=== PATIENT | female | born 1950 | race Two or more races ===

== ENCOUNTER 2017-10-11 15:59 | Inpatient (IN) | payer MEDICARE, MEDICAID ==
[~2017-10-11] VITALS: Ht 160 cm; Wt 95.3 kg
[2017-10-11] MEDS ORDERED: DOCU-141 PO (18:21)
[2017-10-11] MEDS ORDERED: ASCO500T10 PO (18:21)
[2017-10-11] MEDS ORDERED: OXYC-128 PO (18:21)
[2017-10-11] MEDS ORDERED: SENN-167 PO (18:21)
[2017-10-11] MEDS ORDERED: LISI-603 PO (18:21)
[2017-10-11] MEDS ORDERED: ACET-73 PO (18:21)
[2017-10-11] MEDS ORDERED: BISA-79 PR (18:21)
[2017-10-11] MEDS ORDERED: SODI50SP NS (18:21)
[2017-10-11] MEDS ORDERED: CEPH-570 PO (18:21)
[2017-10-11] MEDS ORDERED: ASPI-612 PO (18:21)
[2017-10-11] MEDS ORDERED: FLUT16SP NS (18:21)
[2017-10-11] MEDS ORDERED: FERR325T28 PO (18:21)
[2017-10-11] MEDS ORDERED: OMEP20TA5 PO (18:21)
[2017-10-11] MEDS ORDERED: FLUO60SO3 TP (18:21)
[2017-10-11] MEDS ORDERED: PRAV20TA4 PO (18:21)
[2017-10-11] MEDS ORDERED: TIOT18CA3 IH (18:21)
[2017-10-11] MEDS ORDERED: OXYCODONE/APAP 5-325 MG TABLET PO PRN (19:00)
[2017-10-11] MEDS ORDERED: SENNOSIDES 1 TABLET PO PRN (19:00)
[2017-10-11] MEDS ORDERED: ACETAMINOPHEN ES 500 MG TABLET PO PRN (19:00)
[2017-10-11] MEDS ORDERED: BISACODYL 10 MG SUPP.RECT RC PRN (19:15)
[2017-10-11 20:30] VITALS: BP 118/40
[2017-10-11] MEDS: CEPHALEXIN MONOHYDRATE 500 MG CAPSULE PO SCH (21:31)
[2017-10-11] MEDS: MORPHINE SULFATE SR 15 MG TABLET.SA PO SCH (21:31)
[2017-10-12] MEDS: PANTOPRAZOLE SODIUM 40 MG TABLET.DR PO SCH (06:23)
[2017-10-12 06:37] VITALS: BP 109/44
[2017-10-12 07:07] LABS: BASOPHILS # (AUTO) 0.1 K/uL (0.0-8.0); BASOPHILS % (AUTO) 1.4 % (0.0-2.0); EOSINOPHILS # (AUTO) 0.8 K/uL (0.0-0.7); EOSINOPHILS % (AUTO) 10.7 % (0.0-7.0); HEMATOCRIT 25.7 % (31.2-41.9); HEMOGLOBIN 8.8 g/dL (10.9-14.3); LYMPHOCYTES # (AUTO) 1.7 K/uL (20.0-40.0); MEAN CORPUSCULAR HEMOGLOBIN 33.5 uug (24.7-32.8); MEAN CORPUSCULAR HGB CONC 34 g/dL (32.3-35.6); MEAN CORPUSCULAR VOLUME 98.2 fL (75.5-95.3); MONOCYTES # (AUTO) 0.7 K/uL (2.0-10.0); MONOCYTES % (AUTO) 8.8 % (0.0-11.0); NEUTROPHILS # (AUTO) 4.5 K/uL (1.8-8.9); NEUTROPHILS % (AUTO) 57.1 % (38.5-71.5); PLATELET COUNT (AUTO) 238 K/uL (179-408); RED BLOOD CELL COUNT(AUTO) 2.62 MIL/uL (3.63-4.92); WHITE BLOOD COUNT (AUTO) 7.8 K/uL (3.8-11.8)
[2017-10-12 07:17] LABS: THYROID STIMULATING HORMONE 3.35 mIU/mL (0.358-3.740)
[2017-10-12 07:43] LABS: BILIRUBIN,TOTAL 0.2 mg/dL (0.2-1.0); CREATININE 0.9 mg/dL (0.6-1.3); MAGNESIUM 1.9 mg/dL (1.8-2.4); PHOSPHOROUS 4.8 mg/dL (2.5-4.9); POTASSIUM 4.6 mmol/L (3.5-5.1); TOTAL PROTEIN, SERUM 6.1 g/dL (6.4-8.2)
[2017-10-12] MEDS: DOCUSATE SODIUM 100 MG CAPSULE PO SCH ×2 (09:07→16:44)
[2017-10-12] MEDS: FERROUS SULFATE 325 MG TABEC PO SCH (09:07)
[2017-10-12] MEDS: CEPHALEXIN MONOHYDRATE 500 MG CAPSULE PO SCH ×4 (09:07→21:07)
[2017-10-12] MEDS: MORPHINE SULFATE SR 15 MG TABLET.SA PO SCH ×2 (09:07→21:08)
[2017-10-12] MEDS: ASPIRIN 325 MG TABLET PO SCH ×2 (09:07→16:44)
[2017-10-12] MEDS: ASCORBIC ACID 500 MG TABLET PO SCH (09:08)
[2017-10-12 11:15] VITALS: BP 105/49
[2017-10-12] MEDS: OXYCODONE HCL 5 MG TABLET PO PRN ×2 (14:08→23:37)
[2017-10-12 16:03] VITALS: BP 120/48
[2017-10-12 20:20] VITALS: BP 100/44
[2017-10-13 05:00] VITALS: BP 101/41
[2017-10-13] MEDS: PANTOPRAZOLE SODIUM 40 MG TABLET.DR PO SCH (06:09)
[2017-10-13] MEDS: OXYCODONE HCL 5 MG TABLET PO PRN ×3 (06:10→21:39)
[2017-10-13 07:50] VITALS: BP 99/38
[2017-10-13] MEDS: CEPHALEXIN MONOHYDRATE 500 MG CAPSULE PO SCH ×4 (08:14→20:08)
[2017-10-13] MEDS: FERROUS SULFATE 325 MG TABEC PO SCH (08:14)
[2017-10-13] MEDS: ASCORBIC ACID 500 MG TABLET PO SCH (08:15)
[2017-10-13] MEDS: MORPHINE SULFATE SR 15 MG TABLET.SA PO SCH ×2 (08:15→20:08)
[2017-10-13] MEDS: ASPIRIN 325 MG TABLET PO SCH ×2 (08:15→16:14)
[2017-10-13] MEDS: DOCUSATE SODIUM 100 MG CAPSULE PO SCH ×2 (08:15→16:13)
[2017-10-13] MEDS: CYANOCOBALAMIN 1000 MCG/ML VIAL IM SCH (08:15)
[2017-10-13] MEDS: BISACODYL 5 MG TABLET.DR PO PRN ×2 (12:35→16:14)
[2017-10-13 15:49] VITALS: BP 108/38
[2017-10-13 20:48] VITALS: BP 125/47
[2017-10-14 05:53] VITALS: BP 105/48
[2017-10-14] MEDS: OXYCODONE HCL 5 MG TABLET PO PRN ×4 (06:05→23:58)
[2017-10-14] MEDS: PANTOPRAZOLE SODIUM 40 MG TABLET.DR PO SCH (06:05)
[2017-10-14 08:00] VITALS: BP 117/43
[2017-10-14] MEDS: CEPHALEXIN MONOHYDRATE 500 MG CAPSULE PO SCH ×4 (09:11→20:17)
[2017-10-14] MEDS: ASPIRIN 325 MG TABLET PO SCH ×2 (09:11→17:40)
[2017-10-14] MEDS: ASCORBIC ACID 500 MG TABLET PO SCH (09:12)
[2017-10-14] MEDS: DOCUSATE SODIUM 100 MG CAPSULE PO SCH ×2 (09:12→17:39)
[2017-10-14] MEDS: MORPHINE SULFATE SR 15 MG TABLET.SA PO SCH ×2 (09:12→20:17)
[2017-10-14] MEDS: FERROUS SULFATE 325 MG TABEC PO SCH (09:12)
[2017-10-14] MEDS: CYANOCOBALAMIN 1000 MCG/ML VIAL IM SCH (09:12)
[2017-10-14] MEDS: BISACODYL 5 MG TABLET.DR PO SCH (17:40)
[2017-10-14 19:30] VITALS: BP 128/50
[2017-10-15] MEDS: PANTOPRAZOLE SODIUM 40 MG TABLET.DR PO SCH (06:36)
[2017-10-15] MEDS: OXYCODONE HCL 5 MG TABLET PO PRN (06:38)
[2017-10-15] MEDS: CEPHALEXIN MONOHYDRATE 500 MG CAPSULE PO SCH ×4 (08:52→20:11)
[2017-10-15] MEDS: CHOLECALCIFEROL 1,000 UNIT TABLET PO SCH (08:52)
[2017-10-15] MEDS: ASPIRIN 325 MG TABLET PO SCH ×2 (08:52→17:40)
[2017-10-15] MEDS: ASCORBIC ACID 500 MG TABLET PO SCH (08:52)
[2017-10-15] MEDS: MORPHINE SULFATE SR 15 MG TABLET.SA PO SCH ×2 (08:53→20:11)
[2017-10-15] MEDS: FERROUS SULFATE 325 MG TABEC PO SCH (08:53)
[2017-10-15] MEDS: BISACODYL 5 MG TABLET.DR PO SCH ×2 (08:53→17:40)
[2017-10-15] MEDS: DOCUSATE SODIUM 100 MG CAPSULE PO SCH ×2 (08:53→17:40)
[2017-10-15 08:54] VITALS: BP 119/44
[2017-10-15] MEDS: CYANOCOBALAMIN 1000 MCG/ML VIAL IM SCH (08:54)
[2017-10-15 16:31] VITALS: BP 107/54
[2017-10-15 20:36] VITALS: BP 110/56
[2017-10-16] MEDS: PANTOPRAZOLE SODIUM 40 MG TABLET.DR PO SCH (06:04)
[2017-10-16] MEDS: OXYCODONE HCL 5 MG TABLET PO PRN ×2 (06:07→16:42)
[2017-10-16 06:40] VITALS: BP 109/53
[2017-10-16] MEDS: FERROUS SULFATE 325 MG TABEC PO SCH (08:30)
[2017-10-16] MEDS: BISACODYL 5 MG TABLET.DR PO SCH ×2 (08:30→16:41)
[2017-10-16] MEDS: ASPIRIN 325 MG TABLET PO SCH ×2 (08:31→16:41)
[2017-10-16] MEDS: CHOLECALCIFEROL 1,000 UNIT TABLET PO SCH (08:31)
[2017-10-16] MEDS: CEPHALEXIN MONOHYDRATE 500 MG CAPSULE PO SCH ×4 (08:31→20:17)
[2017-10-16] MEDS: ASCORBIC ACID 500 MG TABLET PO SCH (08:31)
[2017-10-16] MEDS: CYANOCOBALAMIN 1000 MCG/ML VIAL IM SCH (08:32)
[2017-10-16] MEDS: DOCUSATE SODIUM 100 MG CAPSULE PO SCH ×2 (08:32→16:41)
[2017-10-16] MEDS: MORPHINE SULFATE SR 15 MG TABLET.SA PO SCH ×2 (08:32→20:18)
[2017-10-16] MEDS ORDERED: FUROSEMIDE 20 MG TABLET PO ONE (12:30)
[2017-10-16] MEDS: IPRATROPIUM BROMIDE 0.5 MG/2.5 ML NEBU NEB SCH ×2 (13:30→19:20)
[2017-10-16 17:32] VITALS: BP 127/50
[2017-10-16 20:00] VITALS: BP 111/46
[2017-10-17] MEDS: IPRATROPIUM BROMIDE 0.5 MG/2.5 ML NEBU NEB SCH ×4 (02:02→19:07)
[2017-10-17 04:00] VITALS: BP 121/52
[2017-10-17 04:07] VITALS: BP 110/47
[2017-10-17] MEDS: MORPHINE SULFATE SR 15 MG TABLET.SA PO SCH ×2 (05:39→20:26)
[2017-10-17] MEDS: PANTOPRAZOLE SODIUM 40 MG TABLET.DR PO SCH (05:40)
[2017-10-17] MEDS ORDERED: MISCELLANEOUS MED INH SCH (09:00)
[2017-10-17] MEDS: ASPIRIN 325 MG TABLET PO SCH ×2 (09:08→17:01)
[2017-10-17] MEDS: OXYCODONE HCL 5 MG TABLET PO PRN ×2 (09:08→13:37)
[2017-10-17] MEDS: BISACODYL 5 MG TABLET.DR PO SCH ×2 (09:08→17:01)
[2017-10-17] MEDS: FLUTICASONE PROP NASAL SPRAY 16 GM BOTTLE NS SCH (09:08)
[2017-10-17] MEDS: CEPHALEXIN MONOHYDRATE 500 MG CAPSULE PO SCH ×4 (09:09→20:26)
[2017-10-17] MEDS: FUROSEMIDE 20 MG TABLET PO SCH (09:09)
[2017-10-17] MEDS: ASCORBIC ACID 500 MG TABLET PO SCH (09:09)
[2017-10-17] MEDS: DOCUSATE SODIUM 100 MG CAPSULE PO SCH ×2 (09:09→17:01)
[2017-10-17] MEDS: FERROUS SULFATE 325 MG TABEC PO SCH (09:09)
[2017-10-17] MEDS: CYANOCOBALAMIN 1000 MCG/ML VIAL IM SCH (09:09)
[2017-10-17] MEDS: CHOLECALCIFEROL 1,000 UNIT TABLET PO SCH (09:09)
[2017-10-17 16:07] VITALS: BP 110/47
[2017-10-17 20:00] VITALS: BP 143/53
[2017-10-18] MEDS: IPRATROPIUM BROMIDE 0.5 MG/2.5 ML NEBU NEB SCH ×4 (01:27→19:00)
[2017-10-18] MEDS: OXYCODONE HCL 5 MG TABLET PO PRN ×2 (02:33→13:58)
[2017-10-18 04:00] VITALS: BP 118/46
[2017-10-18] MEDS: PANTOPRAZOLE SODIUM 40 MG TABLET.DR PO SCH (06:06)
[2017-10-18] MEDS: CYANOCOBALAMIN 1000 MCG/ML VIAL IM SCH (08:21)
[2017-10-18] MEDS: ASPIRIN 325 MG TABLET PO SCH ×2 (08:22→17:13)
[2017-10-18] MEDS: MORPHINE SULFATE SR 15 MG TABLET.SA PO SCH ×2 (08:22→20:18)
[2017-10-18] MEDS: FUROSEMIDE 20 MG TABLET PO SCH (08:22)
[2017-10-18] MEDS: DOCUSATE SODIUM 100 MG CAPSULE PO SCH ×2 (08:23→17:12)
[2017-10-18] MEDS: CHOLECALCIFEROL 1,000 UNIT TABLET PO SCH (08:23)
[2017-10-18] MEDS: CEPHALEXIN MONOHYDRATE 500 MG CAPSULE PO SCH ×4 (08:23→20:17)
[2017-10-18] MEDS: FERROUS SULFATE 325 MG TABEC PO SCH (08:23)
[2017-10-18] MEDS: BISACODYL 5 MG TABLET.DR PO SCH ×2 (08:23→17:12)
[2017-10-18] MEDS: FLUTICASONE PROP NASAL SPRAY 16 GM BOTTLE NS SCH (08:23)
[2017-10-18] MEDS: ASCORBIC ACID 500 MG TABLET PO SCH (08:23)
[2017-10-18 16:06] VITALS: BP 130/48
[2017-10-18 19:51] VITALS: BP 132/50
[2017-10-19] MEDS: IPRATROPIUM BROMIDE 0.5 MG/2.5 ML NEBU NEB SCH ×4 (00:30→21:22)
[2017-10-19 05:00] VITALS: BP 127/53
[2017-10-19] MEDS: PANTOPRAZOLE SODIUM 40 MG TABLET.DR PO SCH (06:00)
[2017-10-19] MEDS: OXYCODONE HCL 5 MG TABLET PO PRN (06:00)
[2017-10-19] MEDS: DOCUSATE SODIUM 100 MG CAPSULE PO SCH ×2 (09:08→17:42)
[2017-10-19] MEDS: FERROUS SULFATE 325 MG TABEC PO SCH (09:08)
[2017-10-19] MEDS: CHOLECALCIFEROL 1,000 UNIT TABLET PO SCH (09:09)
[2017-10-19] MEDS: BISACODYL 5 MG TABLET.DR PO SCH ×2 (09:09→17:42)
[2017-10-19] MEDS: CEPHALEXIN MONOHYDRATE 500 MG CAPSULE PO SCH (09:09)
[2017-10-19] MEDS: FUROSEMIDE 20 MG TABLET PO SCH (09:09)
[2017-10-19] MEDS: ASPIRIN 325 MG TABLET PO SCH ×2 (09:09→17:42)
[2017-10-19] MEDS: ASCORBIC ACID 500 MG TABLET PO SCH (09:09)
[2017-10-19] MEDS: MORPHINE SULFATE SR 15 MG TABLET.SA PO SCH ×2 (09:11→20:20)
[2017-10-19] MEDS: CYANOCOBALAMIN 1000 MCG/ML VIAL IM SCH (09:11)
[2017-10-19] MEDS: FLUTICASONE PROP NASAL SPRAY 16 GM BOTTLE NS SCH (09:13)
[2017-10-19] MEDS: VANCOMYCIN IV 1,500 MG in IV DEXTROSE 5% 500 ML IV SCH (13:34)
[2017-10-19 16:08] VITALS: BP 111/45
[2017-10-19 19:30] VITALS: BP 104/44
[2017-10-20] MEDS: IPRATROPIUM BROMIDE 0.5 MG/2.5 ML NEBU NEB SCH ×4 (01:30→20:36)
[2017-10-20] MEDS: OXYCODONE HCL 5 MG TABLET PO PRN ×3 (03:21→18:46)
[2017-10-20 04:30] VITALS: BP 110/48
[2017-10-20] MEDS: VANCOMYCIN IV 1,500 MG in IV DEXTROSE 5% 500 ML IV SCH ×2 (05:44→23:42)
[2017-10-20] MEDS: PANTOPRAZOLE SODIUM 40 MG TABLET.DR PO SCH (06:06)
[2017-10-20] MEDS: ASPIRIN 325 MG TABLET PO SCH ×2 (08:29→16:22)
[2017-10-20] MEDS: CHOLECALCIFEROL 1,000 UNIT TABLET PO SCH (08:29)
[2017-10-20] MEDS: FERROUS SULFATE 325 MG TABEC PO SCH (08:29)
[2017-10-20] MEDS: DOCUSATE SODIUM 100 MG CAPSULE PO SCH ×2 (08:29→16:22)
[2017-10-20] MEDS: MORPHINE SULFATE SR 15 MG TABLET.SA PO SCH ×2 (08:30→20:08)
[2017-10-20] MEDS: FUROSEMIDE 20 MG TABLET PO SCH (08:30)
[2017-10-20] MEDS: CYANOCOBALAMIN 1000 MCG/ML VIAL IM SCH (08:30)
[2017-10-20] MEDS: ASCORBIC ACID 500 MG TABLET PO SCH (08:30)
[2017-10-20] MEDS: BISACODYL 5 MG TABLET.DR PO SCH ×2 (08:30→16:21)
[2017-10-20] MEDS: FLUTICASONE PROP NASAL SPRAY 16 GM BOTTLE NS SCH (08:32)
[2017-10-20 09:00] VITALS: BP 120/51
[2017-10-20 15:57] VITALS: BP 96/45
[2017-10-20 16:03] VITALS: BP 96/45
[2017-10-20 19:30] VITALS: BP 102/42
[2017-10-20] MEDS: NYSTATIN OINTMENT 15 GM TUBE TOP SCH (20:08)
[2017-10-21] MEDS: IPRATROPIUM BROMIDE 0.5 MG/2.5 ML NEBU NEB SCH ×4 (01:07→18:34)
[2017-10-21 04:00] VITALS: BP 130/48
[2017-10-21] MEDS: PANTOPRAZOLE SODIUM 40 MG TABLET.DR PO SCH (06:23)
[2017-10-21] MEDS: BISACODYL 5 MG TABLET.DR PO SCH ×2 (08:56→17:45)
[2017-10-21] MEDS: FERROUS SULFATE 325 MG TABEC PO SCH (08:56)
[2017-10-21] MEDS: CHOLECALCIFEROL 1,000 UNIT TABLET PO SCH (08:56)
[2017-10-21] MEDS: ASCORBIC ACID 500 MG TABLET PO SCH (08:56)
[2017-10-21] MEDS: DOCUSATE SODIUM 100 MG CAPSULE PO SCH ×2 (08:56→17:45)
[2017-10-21] MEDS: ASPIRIN 325 MG TABLET PO SCH ×2 (08:57→17:45)
[2017-10-21] MEDS: FLUTICASONE PROP NASAL SPRAY 16 GM BOTTLE NS SCH (08:57)
[2017-10-21] MEDS: FUROSEMIDE 20 MG TABLET PO SCH (08:57)
[2017-10-21] MEDS: CYANOCOBALAMIN 1000 MCG/ML VIAL IM SCH (08:57)
[2017-10-21] MEDS: MORPHINE SULFATE SR 15 MG TABLET.SA PO SCH ×2 (08:58→20:29)
[2017-10-21] MEDS: NYSTATIN OINTMENT 15 GM TUBE TOP SCH ×2 (08:59→20:28)
[2017-10-21 09:04] VITALS: BP 105/61
[2017-10-21] MEDS: OXYCODONE HCL 5 MG TABLET PO PRN (13:53)
[2017-10-21 15:40] VITALS: BP 114/52
[2017-10-21] MEDS: VANCOMYCIN IV 1,500 MG in IV DEXTROSE 5% 500 ML IV SCH (19:44)
[2017-10-21 20:00] VITALS: BP 89/45
[2017-10-22] MEDS: IPRATROPIUM BROMIDE 0.5 MG/2.5 ML NEBU NEB SCH ×3 (00:33→13:30)
[2017-10-22] MEDS: OXYCODONE HCL 5 MG TABLET PO PRN ×2 (01:39→06:42)
[2017-10-22 04:30] VITALS: BP 111/46
[2017-10-22] MEDS: PANTOPRAZOLE SODIUM 40 MG TABLET.DR PO SCH (06:18)
[2017-10-22] MEDS: DOCUSATE SODIUM 100 MG CAPSULE PO SCH (08:34)
[2017-10-22] MEDS: CHOLECALCIFEROL 1,000 UNIT TABLET PO SCH (08:34)
[2017-10-22] MEDS: FERROUS SULFATE 325 MG TABEC PO SCH (08:34)
[2017-10-22] MEDS: BISACODYL 5 MG TABLET.DR PO SCH (08:34)
[2017-10-22] MEDS: ASCORBIC ACID 500 MG TABLET PO SCH (08:34)
[2017-10-22] MEDS: FUROSEMIDE 20 MG TABLET PO SCH (08:34)
[2017-10-22] MEDS: ASPIRIN 325 MG TABLET PO SCH (08:34)
[2017-10-22] MEDS: MORPHINE SULFATE SR 15 MG TABLET.SA PO SCH (08:35)
[2017-10-22] MEDS: FLUTICASONE PROP NASAL SPRAY 16 GM BOTTLE NS SCH (08:36)
[2017-10-22] MEDS: CYANOCOBALAMIN 1000 MCG/ML VIAL IM SCH (08:36)
[2017-10-22] MEDS: NYSTATIN OINTMENT 15 GM TUBE TOP SCH (08:36)
[2017-10-22 08:42] VITALS: BP 113/65
[2017-10-22] MEDS: VANCOMYCIN IV 1,500 MG in IV DEXTROSE 5% 500 ML IV SCH (11:35)
== END 2017-10-22 14:10 | DRG 560 ==
PROVIDERS: ADMIT Physical Medicine & Rehabilitation Pain Medicine; ATTEND Physical Medicine & Rehabilitation Pain Medicine
DX: Z47.1 Aftercare following joint replacement surgery (principal); L03.116 Cellulitis of left lower limb; T81.4XXD Infection following a procedure, subsequent encounter; J44.9 Chronic obstructive pulmonary disease, unspecified; Z96.642 Presence of left artificial hip joint; E66.01 Morbid (severe) obesity due to excess calories; Z68.37 Body mass index [BMI] 37.0-37.9, adult; G89.29 Other chronic pain; M54.5 Low back pain; R53.1 Weakness; I10 Essential (primary) hypertension; R26.89 Other abnormalities of gait and mobility; L29.9 Pruritus, unspecified; M17.10 Unilateral primary osteoarthritis, unspecified knee; N76.0 Acute vaginitis; T40.605A Adverse effect of unspecified narcotics, initial encounter; K59.03 Drug induced constipation; Z88.5 Allergy status to narcotic agent; R60.0 Localized edema; Y92.230 Patient room in hospital as the place of occurrence of the external cause
CPT/HCPCS: 36415; 82306; 83735; 84100; 84443; 85025; 92526; 92610; 97110; 97116; 97530; 97535; A4663; J3370; J3420; J3535; J3590; J7060

== ENCOUNTER 2020-01-01 18:43 | Inpatient (IN) | payer MEDICARE, OTHER ==
[~2020-01-01] VITALS: Ht 157.5 cm; Wt 100.4 kg
[~2020-01-01 18:43] MED LIST: ACET-73 PO; ASCO500T10 PO; ASPI-612 PO; CEPH-570 PO; DOCU-141 PO; FERR325T28 PO; FLUO60SO3 TP; FLUT16SP NS; LISI-603 PO; OMEP20TA5 PO; OXYC-128 PO; PRAV20TA4 PO; SENN-261 PO; SODI50SP NS; TIOT18CA3 IH
[2020-01-01] MEDS ORDERED: OXYCODONE/APAP 5-325 MG TABLET PO PRN (19:00)
[2020-01-01] MEDS ORDERED: NORMAL SALINE NASAL 45 ML BOTTLE NS PRN (19:00)
[2020-01-01 19:10] VITALS: BP 150/78
[2020-01-01] MEDS ORDERED: Z GUARD REMEDY PASTE 57 GM TUBE TOP PRN (20:00)
--- NOTE | 2020-01-01 20:00 | NUR ---
pt arrived on the floor at 1900. Received report from day shift nurse. Patient admitted to ARU s/p Left TKR done on 12/28/19 by Ion De La Cruz. ID band in place, allergies documented. made aware. Admitting orders complete and admitting Dr. Marley aware of new admission, med recon completed. Dr. Guan aware of admission and admitting orders completed. Pt Axox4. Patient is in no acute distress, no s/s SOB noted. Complains of 9/10 pain in left knee. Dsg left knee wound vacc, Prevena Plus suction on left knee at 125mmhg. Pt ambulates with walker, standby assist. Belongings list signed and placed in charge. Safety precautions in place with call light and belongings within reach. Will endorse to the oncoming nurse.
[2020-01-01 20:22] VITALS: BP 150/78
[2020-01-01] MEDS ORDERED: FLUOCINONIDE 0.05% SOLU 60 ML BOTTLE TP PRN (21:00)
--- NOTE | 2020-01-01 21:30 | NUR ---
Administered Oxycodone PRN pt complained of 9/10 pain. Pt has generalized itching/rash on sacrum, hips, peritoneal area, lower abdomen and under breasts. Picture taken and placed in chart. all needs attended to, assisted to the bathroom, kept comfortable, and repositioned. Safety measure in place. All personal items and call light within pt reach. will continue to monitor.
[2020-01-02] MEDS ORDERED: CEphaleXIN 500 MG CAPSULE PO SCH
[2020-01-02] MEDS: OXYCODONE HCL 5 MG TABLET PO PRN ×4 (02:52→22:39)
[2020-01-02] MEDS: diphenhydrAMINE 25 MG CAP PO PRN (03:04)
--- NOTE | 2020-01-02 03:15 | NUR ---
Patient complained of pain 8/10 administered Oxy 10mg PRN. Pt is itching and very uncomfortable, doctor electronics computer mechanic made aware, new order for Benadryl PRN for itching ordered and administered.
[2020-01-02 04:10] VITALS: BP 127/75
[2020-01-02] MEDS: PANTOPRAZOLE SODIUM 40 MG TABLET.DR PO SCH (06:35)
--- NOTE | 2020-01-02 06:37 | NUR ---
Patient slept well through the night. No new changes. Pain is tolerable. Itching subsided. Vitals WNL. Will endorse report to next shift accordingly.
[2020-01-02] MEDS: LISINOPRIL 20 MG TABLET PO SCH (08:36)
[2020-01-02] MEDS: DOCUSATE SODIUM 100 MG CAPSULE PO SCH ×2 (08:36→17:08)
[2020-01-02] MEDS: FERROUS SULFATE 325 MG TABEC PO SCH (08:36)
[2020-01-02] MEDS: ASCORBIC ACID 500 MG TABLET PO SCH (08:36)
[2020-01-02] MEDS ORDERED: ASPIRIN 325 MG TABLET PO SCH (09:00)
[2020-01-02] MEDS ORDERED: FLUTICASONE PROP NASAL SPRAY 16 GM BOTTLE NS PRN (09:00)
[2020-01-02] MEDS ORDERED: ATORVASTATIN 10 MG TABLET PO SCH (09:00)
[2020-01-02 12:05] VITALS: BP 130/63
[2020-01-02] MEDS: IPRATROPIUM BROMIDE 0.5 MG/2.5 ML NEBU NEB SCH ×2 (13:30→19:30)
[2020-01-02] MEDS ORDERED: NALOXONE HCL 0.4 MG/ML AMPUL IV PRN (14:15)
[2020-01-02] MEDS: OXYCODONE HCL 10 MG TAB.SR.12H PO SCH ×2 (14:49→21:08)
--- NOTE | 2020-01-02 17:58 | NUR ---
Q6 atrovent first dose not given at 1330, unaware of order, not notified.. late start, 1st tx to be given at 1930..
[2020-01-02 20:00] VITALS: BP 138/63
[2020-01-02] MEDS: SENNOSIDES 1 TABLET PO SCH (20:57)
[2020-01-02] MEDS: ATORVASTATIN 10 MG TABLET PO SCH (20:57)
[2020-01-02] MEDS: diphenhydrAMINE 2% 28.4 GM CREAM TP PRN (21:10)
--- NOTE | 2020-01-02 22:00 | NUR ---
Received pt in bed resting. No s/s of acute distress, no SOB noted. Vitals WNL. Complaint of pain 10/12. All due medication administered. Applied Benadryl cream to affected areas that was itching. Attended to all need. Safety measures in place. Will continue to monitor.
--- NOTE | 2020-01-02 23:00 | NUR ---
Patient complaint of 9/10 pain administered OXYIR PRN 10 mg.
[2020-01-03] MEDS: IPRATROPIUM BROMIDE 0.5 MG/2.5 ML NEBU NEB SCH ×4 (01:30→19:30)
[2020-01-03 04:00] VITALS: BP 104/65
[2020-01-03] MEDS: OXYCODONE HCL 10 MG TAB.SR.12H PO SCH ×3 (05:14→21:09)
[2020-01-03] MEDS: PANTOPRAZOLE SODIUM 40 MG TABLET.DR PO SCH (06:26)
[2020-01-03] MEDS: ASCORBIC ACID 500 MG TABLET PO SCH (08:15)
[2020-01-03] MEDS: DOCUSATE SODIUM 100 MG CAPSULE PO SCH ×2 (08:15→16:19)
[2020-01-03] MEDS: LISINOPRIL 20 MG TABLET PO SCH (08:15)
[2020-01-03] MEDS: FERROUS SULFATE 325 MG TABEC PO SCH (08:15)
[2020-01-03 08:49] VITALS: BP 111/56
[2020-01-03] MEDS: OXYCODONE HCL 5 MG TABLET PO PRN ×2 (09:21→17:24)
[2020-01-03 16:25] VITALS: BP 121/54
--- NOTE | 2020-01-03 19:36 | NUR ---
Received pt in bed resting. No s/s of acute distress, no SOB noted.vs are stable. no c/o pain noted Attended to all need. Safety measures in place. Will continue to monitor.
[2020-01-03] MEDS: ATORVASTATIN 10 MG TABLET PO SCH (20:13)
[2020-01-03] MEDS: SENNOSIDES 1 TABLET PO SCH (20:13)
[2020-01-03 20:38] VITALS: BP 102/45
[2020-01-03] MEDS: ACETAMINOPHEN ES 500 MG TABLET PO PRN (23:06)
[2020-01-03] MEDS: diphenhydrAMINE 25 MG CAP PO PRN (23:06)
[2020-01-04] MEDS: OXYCODONE HCL 5 MG TABLET PO PRN ×3 (01:13→18:45)
[2020-01-04] MEDS: IPRATROPIUM BROMIDE 0.5 MG/2.5 ML NEBU NEB SCH ×4 (01:30→19:30)
[2020-01-04 04:42] VITALS: BP 108/50
[2020-01-04] MEDS: OXYCODONE HCL 10 MG TAB.SR.12H PO SCH ×3 (05:17→21:27)
--- NOTE | 2020-01-04 05:41 | NUR ---
pt slept throughout the night on and off c/o pain pain meds given per md orders call light with in reach
[2020-01-04] MEDS: PANTOPRAZOLE SODIUM 40 MG TABLET.DR PO SCH (06:41)
[2020-01-04 07:39] VITALS: BP 125/52
[2020-01-04] MEDS: FERROUS SULFATE 325 MG TABEC PO SCH (09:44)
[2020-01-04] MEDS: DOCUSATE SODIUM 100 MG CAPSULE PO SCH ×2 (09:44→17:11)
[2020-01-04] MEDS: ASCORBIC ACID 500 MG TABLET PO SCH (09:44)
[2020-01-04] MEDS: LISINOPRIL 20 MG TABLET PO SCH (09:44)
--- NOTE | 2020-01-04 12:25 | NUR ---
Talked to Dr. Marley regarding miscellaneous order for Heparin 5000 SQ Q12 and will put in order
[2020-01-04 13:25] LABS: BASOPHILS # (AUTO) 0.1 K/uL (0.0-8.0); BASOPHILS % (AUTO) 0.7 % (0.0-2.0); EOSINOPHILS # (AUTO) 0.7 K/uL (0.0-0.7); HEMOGLOBIN 12.9 g/dL (10.9-14.3); LYMPHOCYTES # (AUTO) 1.4 K/uL (20.0-40.0); LYMPHOCYTES % (AUTO) 13.4 % (20.5-51.5); MEAN CORPUSCULAR HGB CONC 34 g/dL (32.3-35.6); MEAN CORPUSCULAR VOLUME 97.3 fL (75.5-95.3); MONOCYTES # (AUTO) 0.9 K/uL (2.0-10.0); MONOCYTES % (AUTO) 8.9 % (0.0-11.0); NEUTROPHILS # (AUTO) 7.1 K/uL (1.8-8.9); PLATELET COUNT (AUTO) 214 K/uL (179-408); RED BLOOD CELL COUNT(AUTO) 3.91 MIL/uL (3.63-4.92); WHITE BLOOD COUNT (AUTO) 10.2 K/uL (3.8-11.8)
[2020-01-04] MEDS: HEPARIN SODIUM,PORCINE 5,000 UNITS/ML VIAL SQ SCH ×2 (14:23→20:09)
[2020-01-04 15:50] VITALS: BP 130/74
[2020-01-04] MEDS: diphenhydrAMINE 2% 28.4 GM CREAM TP PRN (17:12)
--- NOTE | 2020-01-04 17:47 | NUR ---
Patient stable throughout shift. Pain management provided. No other complaints at this time
--- NOTE | 2020-01-04 18:54 | NUR ---
INDIVIDUALIZED PLAN OF CARE
[2020-01-04 20:00] VITALS: BP 140/68
[2020-01-04] MEDS: ATORVASTATIN 10 MG TABLET PO SCH (20:06)
[2020-01-04] MEDS: SENNOSIDES 1 TABLET PO SCH (20:06)
[2020-01-05] MEDS: IPRATROPIUM BROMIDE 0.5 MG/2.5 ML NEBU NEB SCH ×4 (01:30→19:30)
[2020-01-05] MEDS: OXYCODONE HCL 5 MG TABLET PO PRN ×3 (03:07→18:00)
[2020-01-05 06:00] VITALS: BP 134/62
[2020-01-05] MEDS: OXYCODONE HCL 10 MG TAB.SR.12H PO SCH ×3 (06:11→21:55)
[2020-01-05] MEDS: PANTOPRAZOLE SODIUM 40 MG TABLET.DR PO SCH (06:35)
[2020-01-05 07:30] VITALS: BP 102/53
[2020-01-05] MEDS: ASCORBIC ACID 500 MG TABLET PO SCH (08:58)
[2020-01-05] MEDS: HEPARIN SODIUM,PORCINE 5,000 UNITS/ML VIAL SQ SCH ×2 (08:58→21:24)
[2020-01-05] MEDS: FERROUS SULFATE 325 MG TABEC PO SCH (08:59)
[2020-01-05] MEDS: DOCUSATE SODIUM 100 MG CAPSULE PO SCH ×2 (08:59→16:55)
[2020-01-05] MEDS: LISINOPRIL 20 MG TABLET PO SCH (09:00)
[2020-01-05 16:00] VITALS: BP 137/79
[2020-01-05 20:50] VITALS: BP 129/55
[2020-01-05] MEDS: SENNOSIDES 1 TABLET PO SCH (21:24)
[2020-01-05] MEDS: ATORVASTATIN 10 MG TABLET PO SCH (21:24)
--- NOTE | 2020-01-05 22:00 | NUR ---
Received pt in bed resting. No s/s of acute distress, no SOB noted. Vitals signs WNL. c/o pain 10/12 , administered scheduled OxyContin 20mg. All due medication administered. Attended to all need. Kept comfortable. Safety measures maintained. Will continue to monitor.
[2020-01-06] MEDS: IPRATROPIUM BROMIDE 0.5 MG/2.5 ML NEBU NEB SCH ×4 (01:30→20:45)
[2020-01-06] MEDS: OXYCODONE HCL 5 MG TABLET PO PRN ×3 (03:00→17:44)
--- NOTE | 2020-01-06 03:18 | NUR ---
pt complaint of pain in knee, requested oxir, administered per pt request.
[2020-01-06 04:15] VITALS: BP 131/62
[2020-01-06] MEDS: PANTOPRAZOLE SODIUM 40 MG TABLET.DR PO SCH (06:23)
[2020-01-06] MEDS: OXYCODONE HCL 10 MG TAB.SR.12H PO SCH ×3 (07:09→21:20)
[2020-01-06] MEDS: DOCUSATE SODIUM 100 MG CAPSULE PO SCH ×3 (09:04→17:33)
[2020-01-06] MEDS: ASCORBIC ACID 500 MG TABLET PO SCH (09:05)
[2020-01-06] MEDS: FERROUS SULFATE 325 MG TABEC PO SCH (09:05)
[2020-01-06] MEDS: HEPARIN SODIUM,PORCINE 5,000 UNITS/ML VIAL SQ SCH ×2 (09:07→21:22)
[2020-01-06] MEDS: LISINOPRIL 20 MG TABLET PO SCH (09:20)
[2020-01-06] MEDS: ACETAMINOPHEN ES 500 MG TABLET PO PRN (12:36)
[2020-01-06 15:12] VITALS: BP 101/48
--- NOTE | 2020-01-06 17:00 | NUR ---
Patient remains alert, oriented x 4, not in any form of distress, on room air. She is compliant with medications. Complained of left knee pain with noted relief. Assisted with her needs. Patient participated with PT, OT and tolerated well. Call light and frequently used items placed within patient's reach. Will continue to monitor.
[2020-01-06 20:14] VITALS: BP 112/41
[2020-01-06] MEDS: SENNOSIDES 1 TABLET PO SCH (21:19)
[2020-01-06] MEDS: ATORVASTATIN 10 MG TABLET PO SCH (21:19)
--- NOTE | 2020-01-06 21:57 | NUR ---
Received pt resting in bed. AAO x4. No acute distress noted. C/o pain on the left knee, scheduled pain med and other due meds given as ordered. Pt refused to change/touch wound vac and would rather for her to see surgeon instead. Pt has appointment on 01/08/2020 with surgeon, pick-up at 0700. Pictures taken, perineal and under breast redness resolved. Safety measures maintained. Call light and personal items within reach. Will continue to monitor.
[2020-01-07] MEDS: OXYCODONE HCL 5 MG TABLET PO PRN ×3 (00:02→17:49)
[2020-01-07] MEDS: OXYCODONE HCL 10 MG TAB.SR.12H PO SCH ×3 (05:11→21:06)
[2020-01-07 06:16] LABS: BASOPHILS % (AUTO) 0.6 % (0.0-2.0); EOSINOPHILS # (AUTO) 0.5 K/uL (0.0-0.7); EOSINOPHILS % (AUTO) 6.7 % (0.0-7.0); HEMATOCRIT 33.8 % (31.2-41.9); HEMOGLOBIN 11.4 g/dL (10.9-14.3); LYMPHOCYTES # (AUTO) 1.8 K/uL (20.0-40.0); LYMPHOCYTES % (AUTO) 25.4 % (20.5-51.5); MEAN CORPUSCULAR HGB CONC 34 g/dL (32.3-35.6); MONOCYTES # (AUTO) 0.9 K/uL (2.0-10.0); MONOCYTES % (AUTO) 12.5 % (0.0-11.0); NEUTROPHILS # (AUTO) 3.9 K/uL (1.8-8.9); NEUTROPHILS % (AUTO) 54.8 % (38.5-71.5); PLATELET COUNT (AUTO) 223 K/uL (179-408); RED BLOOD CELL COUNT(AUTO) 3.45 MIL/uL (3.63-4.92); WHITE BLOOD COUNT (AUTO) 7.2 K/uL (3.8-11.8)
[2020-01-07] MEDS: PANTOPRAZOLE SODIUM 40 MG TABLET.DR PO SCH (06:31)
[2020-01-07] MEDS: ACETAMINOPHEN ES 500 MG TABLET PO PRN (06:43)
[2020-01-07 07:02] LABS: THYROID STIMULATING HORMONE 2.652 mIU/mL (0.358-3.740)
[2020-01-07] MEDS: IPRATROPIUM BROMIDE 0.5 MG/2.5 ML NEBU NEB SCH ×3 (07:35→19:30)
[2020-01-07 07:51] LABS: BILIRUBIN,TOTAL 0.6 mg/dL (0.2-1.0); CREATININE 1.1 mg/dL (0.6-1.3); MAGNESIUM 2.3 mg/dL (1.8-2.4); PHOSPHOROUS 4.6 mg/dL (2.5-4.9); POTASSIUM 4.4 mmol/L (3.5-5.1); TOTAL PROTEIN, SERUM 6.9 g/dL (6.4-8.2)
[2020-01-07 08:00] VITALS: BP 104/65
--- NOTE | 2020-01-07 08:00 | NUR ---
SHIFT REPORT Recv'd pt. from night nurse sitting upright in bed AAOx4. Pt. c/o minimal pain 5/10. Night nurse administered Routine Oxycontin at 6am, and breakthrough Tylenol ES 500mg around 7am. Informed pt. cannot receive any more pain meds for several more hours. Wound vac intact to left knee not running with hose attatched, and dressing covering surgery incision site. No bleeding or drainage coming from site. Labs to be taken to today. DNR form needs to be signed by physician. Pt. has appt. w/ surgeon tomorrow 01/08/2020. Flowsheet and H&P need to be completed for 0700 p/u. Pt. stable in bed with call henderson within reach. Will continue to monitor throughout shift.
[2020-01-07] MEDS: FERROUS SULFATE 325 MG TABEC PO SCH (11:24)
[2020-01-07] MEDS: DOCUSATE SODIUM 100 MG CAPSULE PO SCH ×2 (11:24→15:42)
[2020-01-07] MEDS: LISINOPRIL 20 MG TABLET PO SCH (11:29)
[2020-01-07] MEDS: ASCORBIC ACID 500 MG TABLET PO SCH (11:30)
[2020-01-07] MEDS: HEPARIN SODIUM,PORCINE 5,000 UNITS/ML VIAL SQ SCH ×2 (11:32→21:09)
--- NOTE | 2020-01-07 11:45 | NUR ---
Pt c/o 9/10 left knee pain. Administered Oxyir 10mg at 1130. Will reassess in an hour.
--- NOTE | 2020-01-07 14:30 | NUR ---
Report given to nurseAguilar. Endorsed pt. to nurse in stable condition. No s/s of distress. Informed nurse of patient's appt. w/ surgeon tomorrow morning, w/ p/u at 0700, and H&P and flowsheet need to be completed before then.
[2020-01-07 16:12] VITALS: BP 127/48
[2020-01-07 20:08] VITALS: BP 130/52
[2020-01-07] MEDS: SENNOSIDES 1 TABLET PO SCH (21:00)
[2020-01-07] MEDS: ATORVASTATIN 10 MG TABLET PO SCH (21:06)
--- NOTE | 2020-01-07 21:28 | NUR ---
Received pt resting in bed and watching tv. AAO x4. No acute distress noted. C/o moderate pain, scheduled pain med and other due meds given as ordered. Refused senokot, risks and benefits explained. Assisted to the bathroom, stable with walker. Xray on left knee done. Pt has appointment with surgeon tomorrow morning, greens picker by ambulance at 0645. Safety measures maintained. Call light and personal items within reach. Will continue to monitor.
[2020-01-08] MEDS: IPRATROPIUM BROMIDE 0.5 MG/2.5 ML NEBU NEB SCH ×4 (01:30→19:06)
[2020-01-08] MEDS: OXYCODONE HCL 5 MG TABLET PO PRN ×2 (01:56→10:51)
[2020-01-08 04:08] VITALS: BP 112/47
[2020-01-08] MEDS: OXYCODONE HCL 10 MG TAB.SR.12H PO SCH ×4 (06:17→21:38)
[2020-01-08] MEDS: PANTOPRAZOLE SODIUM 40 MG TABLET.DR PO SCH (06:33)
--- NOTE | 2020-01-08 06:33 | NUR ---
Pt refused Protonix. Risks and benefits explained, still refused. Continue to monitor.
--- NOTE | 2020-01-08 07:06 | NUR ---
Pt transport arrived. Brought pt downstairs and in the car at 0704. Pt stable. Confirmed address with test driver, Russ. Will endorse accordingly.
--- NOTE | 2020-01-08 07:55 | NUR ---
patient is out of pass for her orthopedic appointment
[2020-01-08] MEDS: HEPARIN SODIUM,PORCINE 5,000 UNITS/ML VIAL SQ SCH ×3 (09:00→21:42)
[2020-01-08] MEDS: ASCORBIC ACID 500 MG TABLET PO SCH ×2 (09:00→09:40)
[2020-01-08] MEDS: DOCUSATE SODIUM 100 MG CAPSULE PO SCH ×3 (09:00→16:10)
[2020-01-08] MEDS: LISINOPRIL 20 MG TABLET PO SCH ×2 (09:00→09:41)
[2020-01-08] MEDS: FERROUS SULFATE 325 MG TABEC PO SCH ×2 (09:00→09:40)
[2020-01-08] MEDS: CYANOCOBALAMIN 1000 MCG/ML VIAL IM SCH ×2 (09:00→09:41)
--- NOTE | 2020-01-08 09:16 | NUR ---
patient is out of pass for her orthopedic appointment
--- NOTE | 2020-01-08 09:45 | NUR ---
patient came back from orthopedic appointment, no new orders, patient is aware of her next appointment Addendum: 01/08/20 at 1555 by CHRISTIAN ESCALANTE RN, RN gauge dressing is intact to the left knee
[2020-01-08 15:07] VITALS: BP 136/64
[2020-01-08] MEDS: ACETAMINOPHEN ES 500 MG TABLET PO PRN (19:48)
--- NOTE | 2020-01-08 20:00 | NUR ---
Received pt complaining of pain, states she has been waiting for pain medication for over 45 min. Administered breakthrough Tylenol ES 500mg .
[2020-01-08 20:08] VITALS: BP 122/46
[2020-01-08] MEDS: SENNOSIDES 1 TABLET PO SCH (21:38)
[2020-01-08] MEDS: ATORVASTATIN 10 MG TABLET PO SCH (21:38)
--- NOTE | 2020-01-08 22:00 | NUR ---
No acute distress noted. Pt complaint of 7/10 pain in her knee. All due medication administered. Left knee dressing intact, no drainage, no s/s of infection noted. All needs attended too promptly.Safety measure maintained. Call light and frequently used items placed within patient's reach. Will continue to monitor.
[2020-01-09] MEDS: IPRATROPIUM BROMIDE 0.5 MG/2.5 ML NEBU NEB SCH ×4 (00:32→21:00)
[2020-01-09] MEDS: OXYCODONE HCL 5 MG TABLET PO PRN ×3 (00:33→18:14)
--- NOTE | 2020-01-09 00:35 | NUR ---
Pt complaining of left knee pain 6-09/11 , administered OXYIR per pt requested. Educated pt about pain management, explained risk for taking medication close together. will continue plan of care
[2020-01-09 04:20] VITALS: BP 112/53
[2020-01-09] MEDS: OXYCODONE HCL 10 MG TAB.SR.12H PO SCH ×3 (05:29→21:35)
[2020-01-09] MEDS: PANTOPRAZOLE SODIUM 40 MG TABLET.DR PO SCH (06:03)
[2020-01-09 08:00] VITALS: BP 140/65
[2020-01-09] MEDS: FERROUS SULFATE 325 MG TABEC PO SCH (09:35)
[2020-01-09] MEDS: CYANOCOBALAMIN 1000 MCG/ML VIAL IM SCH (09:35)
[2020-01-09] MEDS: ASCORBIC ACID 500 MG TABLET PO SCH (09:35)
[2020-01-09] MEDS: DOCUSATE SODIUM 100 MG CAPSULE PO SCH ×2 (09:35→16:57)
[2020-01-09] MEDS: HEPARIN SODIUM,PORCINE 5,000 UNITS/ML VIAL SQ SCH ×2 (09:36→20:26)
[2020-01-09] MEDS: LISINOPRIL 20 MG TABLET PO SCH (09:36)
[2020-01-09 11:56] VITALS: BP 136/64
--- NOTE | 2020-01-09 14:31 | NUR ---
INTERDISCIPLINARY TEAM CONFERENCE
[2020-01-09 16:20] VITALS: BP 130/72
--- NOTE | 2020-01-09 18:25 | NUR ---
NO CHANGES NOTED DURING SHIFT
[2020-01-09] MEDS: ATORVASTATIN 10 MG TABLET PO SCH (20:22)
[2020-01-09] MEDS: SENNOSIDES 1 TABLET PO SCH (20:22)
[2020-01-10] MEDS: IPRATROPIUM BROMIDE 0.5 MG/2.5 ML NEBU NEB SCH ×4 (01:30→20:29)
[2020-01-10] MEDS: OXYCODONE HCL 5 MG TABLET PO PRN ×5 (01:44→19:45)
--- NOTE | 2020-01-10 04:42 | NUR ---
awake upon rounds. aaox4 ambulates with walker to the BR. Voiding freely. Pain meds given @ scheduled times as well as PRN pain meds. Will monitor patient.
[2020-01-10] MEDS: OXYCODONE HCL 10 MG TAB.SR.12H PO SCH ×3 (06:19→21:07)
[2020-01-10] MEDS: PANTOPRAZOLE SODIUM 40 MG TABLET.DR PO SCH (06:33)
[2020-01-10 07:30] VITALS: BP 119/50
--- NOTE | 2020-01-10 08:29 | NUR ---
patient claims when after the pain medication patient has relief but it only goes down to 5 to 6 and claims she has constant pain ,will inform physician kelsiut it
[2020-01-10] MEDS: CYANOCOBALAMIN 1000 MCG/ML VIAL IM SCH (09:42)
[2020-01-10] MEDS: ASCORBIC ACID 500 MG TABLET PO SCH (09:42)
[2020-01-10] MEDS: DOCUSATE SODIUM 100 MG CAPSULE PO SCH ×2 (09:42→18:11)
[2020-01-10] MEDS: FERROUS SULFATE 325 MG TABEC PO SCH (09:42)
[2020-01-10] MEDS: LISINOPRIL 20 MG TABLET PO SCH (09:43)
[2020-01-10] MEDS: HEPARIN SODIUM,PORCINE 5,000 UNITS/ML VIAL SQ SCH ×2 (09:44→21:01)
--- NOTE | 2020-01-10 11:34 | NUR ---
Ambulating ND TOLERATED WEEL, PATIENT CLAIMS SHE HAS RESIDUAL PAIN EVEN P POAIN MEDICATION, WILL NOTIFY THE PHYSICIAN ABOUT IT
--- NOTE | 2020-01-10 13:00 | NUR ---
IS REQUESTING THE PAIN MEDICATION EVERY 4 HOURS BE GIVEN AN HOUR EARLIER THE SCHEDULED PAIN MEDICATION WILL BE DUSE AT 1400 HOUR, WILL NEED TO INFORM THE PHYSICIAN ABOUT IT
--- NOTE | 2020-01-10 14:03 | NUR ---
TO PHYSICAL THERAPY VIS WHEELCHAIR, PAINM MEDICATION SCHEDULED GIVEN ORDERED BEFORE PHYSICAL THERPY
[2020-01-10 14:30] VITALS: BP 146/48
--- NOTE | 2020-01-10 14:35 | NUR ---
BACK FROM PHYSICAL THERAPY ROOM VIA WHEELCHAIR, REQUESTING BRENT THE PRN PAIN MEDICATION AFTER THE PHYSICAL THERAPY/
--- NOTE | 2020-01-10 14:44 | NUR ---
VITAL SIGNS CHECKED P PHYSICAl THERAPY. REQUESTING FOR THEN PRN MEDICATIONS ,WILL INFORM DR SEWELL ABOUT THE PATIENT COMPLAINTAS
[2020-01-10 16:00] VITALS: BP 123/57
--- NOTE | 2020-01-10 16:51 | NUR ---
DR SALTY LEIGH AND INFORMED ABOUT THEN PATIENT COMPLAINTS OF RESIDUAL PAIN EVEN WITHNPAIN MEDICATION, WILL ALSO INFORM DR SEWELL
--- NOTE | 2020-01-10 17:24 | NUR ---
DOCTOR MELODIE PAGED AND INFORMED THAT THE PATIENT HAS PERSISTENT PAIN TO THEN RIGHT KNEE 12/12 AND THAT SHE CLAIMS THE PAIBN MEDICATION PARTIALLY RELIEVE THE PAIN,BRINGS IT TO 5 TO 6 /10. AWAITING RESPONSE
[2020-01-10] MEDS: ATORVASTATIN 10 MG TABLET PO SCH (20:55)
[2020-01-10] MEDS: SENNOSIDES 1 TABLET PO SCH (20:55)
[2020-01-10] MEDS ORDERED: NALOXONE HCL 0.4 MG/ML AMPUL IV PRN (21:30)
--- NOTE | 2020-01-10 21:57 | NUR ---
AAOx4 Ambulates to the BR with walker. Voiding freely. All due meds given without difficulty. VSS Needs attended. Pain meds given as needed. Left knee dressing clean dry and intact. Patient also on pain meds scheduled, given as ordered. No acute distress noted.
[2020-01-11 00:27] VITALS: BP 120/54
[2020-01-11] MEDS: OXYCODONE HCL 5 MG TABLET PO PRN ×4 (02:29→20:25)
[2020-01-11] MEDS ORDERED: OXYCODONE HCL 20 MG TAB.SR.12H PO SCH (06:00)
[2020-01-11] MEDS ORDERED: NALOXONE HCL 0.4 MG/ML AMPUL IV PRN (06:00)
[2020-01-11] MEDS: OXYCODONE HCL 20 MG TAB.SR.12H PO SCH ×3 (06:10→22:55)
[2020-01-11] MEDS: PANTOPRAZOLE SODIUM 40 MG TABLET.DR PO SCH (06:33)
--- NOTE | 2020-01-11 06:47 | NUR ---
End of shift notes: Quiet night. AAOx4 Independent with ADL's Ambulates with walker. Voiding well. On pain management. Patient on scheduled Oxycontin 20 mg q8 hrs as scheduled before but was modified yesterday since patient insisting that pain level is 10/10 and it was to q6hr instead. Pharmacy called([facility]) and says that its not okay for this medication on q6hr scheduled, it can be modify if the dosage is increase but not the frequency. Left a text message to Dr Guan regarding this medication. No response yet. [facility] pharmacy called and let them know about the situation, so Oxycontin 20 mg changed back to q8hr then. Patient given the scheduled Oxycontin 20 mg @ 0600. Will endorse to dayshift nurse.
[2020-01-11] MEDS: IPRATROPIUM BROMIDE 0.5 MG/2.5 ML NEBU NEB SCH ×3 (07:34→21:15)
--- NOTE | 2020-01-11 07:37 | NUR ---
received asleep and prefers to sleep.
--- NOTE | 2020-01-11 08:20 | NUR ---
ambulating the hallway with the walker and with no request for pain medication,instructed to call if with needs,
[2020-01-11] MEDS: CALCIUM CARB/VITAMIN D 500MG-200UNITS TABLET PO SCH (09:04)
[2020-01-11] MEDS: FERROUS SULFATE 325 MG TABEC PO SCH (09:04)
[2020-01-11] MEDS: LISINOPRIL 20 MG TABLET PO SCH (09:05)
[2020-01-11] MEDS: ASCORBIC ACID 500 MG TABLET PO SCH (09:07)
[2020-01-11] MEDS: DOCUSATE SODIUM 100 MG CAPSULE PO SCH ×2 (09:07→17:23)
[2020-01-11] MEDS: HEPARIN SODIUM,PORCINE 5,000 UNITS/ML VIAL SQ SCH ×2 (09:07→20:32)
[2020-01-11] MEDS: CYANOCOBALAMIN 1000 MCG/ML VIAL IM SCH (09:08)
--- NOTE | 2020-01-11 09:17 | NUR ---
to physical therapy via wheelchair
--- NOTE | 2020-01-11 11:11 | NUR ---
still on the physical therapy for the scheduled physical therapy
[2020-01-11 15:59] VITALS: BP 136/62
--- NOTE | 2020-01-11 17:25 | NUR ---
patient claims she has residual pain even 30 minutes after taking pain medication
--- NOTE | 2020-01-11 19:45 | NUR ---
Patient alert and verbally responsive.No s/s of distress noted at this time.C/o left knee pain.Medicated with medication with relief.Patient ambulates to bathroom with the use of walker.Voided well.All due meds given. No a/r noted.Call light and all belongings with in reach.Continue safety measures.Will continue to monitor.
[2020-01-11] MEDS: SENNOSIDES 1 TABLET PO SCH (20:23)
[2020-01-11] MEDS: ATORVASTATIN 10 MG TABLET PO SCH (20:23)
[2020-01-11 20:28] VITALS: BP 120/67
[2020-01-12] MEDS: IPRATROPIUM BROMIDE 0.5 MG/2.5 ML NEBU NEB SCH ×4 (00:37→19:30)
[2020-01-12] MEDS: OXYCODONE HCL 5 MG TABLET PO PRN ×4 (03:29→20:58)
[2020-01-12 04:15] VITALS: BP 105/48
[2020-01-12] MEDS: OXYCODONE HCL 20 MG TAB.SR.12H PO SCH ×3 (06:03→22:17)
--- NOTE | 2020-01-12 06:29 | NUR ---
Patient slept well.Left knee dressing intact clean and dry s/p total replacement.Compliant with medications.NO BM at this time .Per patient she had BM yesterday.All needs anticipated and met accordingly.
[2020-01-12] MEDS: PANTOPRAZOLE SODIUM 40 MG TABLET.DR PO SCH (06:32)
[2020-01-12] MEDS: FERROUS SULFATE 325 MG TABEC PO SCH (08:29)
[2020-01-12] MEDS: LISINOPRIL 20 MG TABLET PO SCH (08:29)
[2020-01-12] MEDS: CALCIUM CARB/VITAMIN D 500MG-200UNITS TABLET PO SCH (08:29)
[2020-01-12] MEDS: ASCORBIC ACID 500 MG TABLET PO SCH (08:29)
[2020-01-12] MEDS: DOCUSATE SODIUM 100 MG CAPSULE PO SCH ×2 (08:29→17:21)
[2020-01-12] MEDS: CYANOCOBALAMIN 1000 MCG/ML VIAL IM SCH (08:30)
[2020-01-12] MEDS: HEPARIN SODIUM,PORCINE 5,000 UNITS/ML VIAL SQ SCH ×2 (08:32→20:59)
[2020-01-12 08:33] VITALS: BP 121/63
[2020-01-12] MEDS: ACETAMINOPHEN ES 500 MG TABLET PO PRN (12:03)
[2020-01-12 16:02] VITALS: BP 117/53
--- NOTE | 2020-01-12 19:30 | NUR ---
Received pt awake and alert in bed. On RA and denies any SOB or chest pain. No acute distress at this time. Will continue to monitor
[2020-01-12 20:00] VITALS: BP 106/50
[2020-01-12] MEDS: ATORVASTATIN 10 MG TABLET PO SCH (20:55)
[2020-01-12] MEDS: SENNOSIDES 1 TABLET PO SCH (20:55)
[2020-01-13] MEDS: OXYCODONE HCL 5 MG TABLET PO PRN ×5 (01:14→19:54)
[2020-01-13] MEDS: IPRATROPIUM BROMIDE 0.5 MG/2.5 ML NEBU NEB SCH ×5 (01:30→19:30)
[2020-01-13 04:00] VITALS: BP 109/47
[2020-01-13] MEDS: OXYCODONE HCL 20 MG TAB.SR.12H PO SCH ×3 (05:17→22:05)
[2020-01-13] MEDS: PANTOPRAZOLE SODIUM 40 MG TABLET.DR PO SCH (06:30)
--- NOTE | 2020-01-13 06:40 | NUR ---
Pt slept intermittently through the night. Denies any acute distress or SOB. V/S stable on room air. L Knee dressing remained intact and dry. Pain managed effectively. Safety measures in place. Call light within reach. Will endorse to oncoming nurse.
--- NOTE | 2020-01-13 07:30 | NUR ---
Received patient resting in bed, Awake, alert and oriented times 4. No sign of distress noted at this time. Patient reports pain of 8/10 will check eMAR to see what patient has available. Safety precautions are in place with call light and belongings within reach. Will continue to monitor.
[2020-01-13 08:00] VITALS: BP 112/52
[2020-01-13] MEDS: FERROUS SULFATE 325 MG TABEC PO SCH (08:52)
[2020-01-13] MEDS: CALCIUM CARB/VITAMIN D 500MG-200UNITS TABLET PO SCH (08:52)
[2020-01-13] MEDS: ASCORBIC ACID 500 MG TABLET PO SCH (08:52)
[2020-01-13] MEDS: DOCUSATE SODIUM 100 MG CAPSULE PO SCH ×2 (08:52→17:42)
[2020-01-13] MEDS: CYANOCOBALAMIN 1000 MCG/ML VIAL IM SCH (08:53)
[2020-01-13] MEDS: CHOLECALCIFEROL 400 UNITS TABLET PO SCH (09:01)
[2020-01-13] MEDS: LISINOPRIL 20 MG TABLET PO SCH (09:08)
[2020-01-13] MEDS: HEPARIN SODIUM,PORCINE 5,000 UNITS/ML VIAL SQ SCH ×2 (10:40→21:22)
--- NOTE | 2020-01-13 13:50 | NUR ---
Went to patient's room to give pain medication but patient is off the floor with PT. Will administer medication when patient is back on the floor.
[2020-01-13 16:00] VITALS: BP 123/56
--- NOTE | 2020-01-13 19:00 | NUR ---
Patient received from AM nurse. VSS. No reports of SOB. Patient reports pain, and is very aware of her medication regimen and schedule. Will continue to monitor and assess.
[2020-01-13 20:12] VITALS: BP 109/60
[2020-01-13] MEDS: SENNOSIDES 1 TABLET PO SCH (21:18)
[2020-01-13] MEDS: ATORVASTATIN 10 MG TABLET PO SCH (21:18)
--- NOTE | 2020-01-14 01:11 | NUR ---
Patient is asleep but arouses easily to stimulation. VSS. No SOB. Patient sleeping well after prompt administration of her pain medication. Will continue to monitor and assess.
[2020-01-14] MEDS: IPRATROPIUM BROMIDE 0.5 MG/2.5 ML NEBU NEB SCH ×3 (01:30→13:30)
[2020-01-14] MEDS: ACETAMINOPHEN ES 500 MG TABLET PO PRN (02:52)
[2020-01-14] MEDS: OXYCODONE HCL 5 MG TABLET PO PRN ×4 (02:52→17:02)
[2020-01-14 04:14] VITALS: BP 123/45
[2020-01-14] MEDS: OXYCODONE HCL 20 MG TAB.SR.12H PO SCH ×2 (06:04→13:59)
[2020-01-14 06:52] LABS: BASOPHILS # (AUTO) 0.1 K/uL (0.0-8.0); BASOPHILS % (AUTO) 1.1 % (0.0-2.0); CREATININE 0.9 mg/dL (0.6-1.3); EOSINOPHILS # (AUTO) 0.6 K/uL (0.0-0.7); EOSINOPHILS % (AUTO) 7.7 % (0.0-7.0); HEMATOCRIT 33.5 % (31.2-41.9); HEMOGLOBIN 11.7 g/dL (10.9-14.3); LYMPHOCYTES # (AUTO) 1.7 K/uL (20.0-40.0); LYMPHOCYTES % (AUTO) 21.7 % (20.5-51.5); MAGNESIUM 2.2 mg/dL (1.8-2.4); MEAN CORPUSCULAR HEMOGLOBIN 34.3 uug (24.7-32.8); MEAN CORPUSCULAR HGB CONC 35 g/dL (32.3-35.6); MEAN CORPUSCULAR VOLUME 98.3 fL (75.5-95.3); MONOCYTES # (AUTO) 0.7 K/uL (2.0-10.0); MONOCYTES % (AUTO) 8.8 % (0.0-11.0); NEUTROPHILS # (AUTO) 4.8 K/uL (1.8-8.9); NEUTROPHILS % (AUTO) 60.7 % (38.5-71.5); PHOSPHOROUS 4.6 mg/dL (2.5-4.9); PLATELET COUNT (AUTO) 235 K/uL (179-408); POTASSIUM 4.6 mmol/L (3.5-5.1); WHITE BLOOD COUNT (AUTO) 7.9 K/uL (3.8-11.8)
--- NOTE | 2020-01-14 07:17 | NUR ---
Handoff with SHEILA Stewart. Cisco Gonzalez RN
[2020-01-14 07:30] VITALS: BP 120/51
[2020-01-14] MEDS: PANTOPRAZOLE SODIUM 40 MG TABLET.DR PO SCH (07:52)
[2020-01-14] MEDS: DOCUSATE SODIUM 100 MG CAPSULE PO SCH ×2 (08:42→17:02)
[2020-01-14] MEDS: CHOLECALCIFEROL 400 UNITS TABLET PO SCH (08:43)
[2020-01-14] MEDS: CALCIUM CARB/VITAMIN D 500MG-200UNITS TABLET PO SCH (08:43)
[2020-01-14] MEDS: FERROUS SULFATE 325 MG TABEC PO SCH (08:43)
[2020-01-14] MEDS: ASCORBIC ACID 500 MG TABLET PO SCH (08:43)
[2020-01-14] MEDS: CYANOCOBALAMIN 1000 MCG/ML VIAL IM SCH (08:44)
[2020-01-14] MEDS: LISINOPRIL 20 MG TABLET PO SCH (08:47)
[2020-01-14] MEDS: HEPARIN SODIUM,PORCINE 5,000 UNITS/ML VIAL SQ SCH (08:49)
--- NOTE | 2020-01-14 15:55 | NUR ---
when trying to take discharge pictures, the patient refused to have the dressing removed so we can take pictures of incision site. Will continue to monitor.
[2020-01-14 16:00] VITALS: BP 120/60
--- NOTE | 2020-01-14 18:27 | NUR ---
patient stated she has her medications at home, does not need prescription teaching provided about each medication with another RN and reviewed each medication with patient in detail, patient stated understanding of medication.
--- NOTE | 2020-01-14 18:42 | NUR ---
Patient handed back the script for the prescription and it was electronically [facility] on [address] [facility] in [place].
--- NOTE | 2020-01-14 19:08 | NUR ---
Patient left on a gurney with all her belongings. Discharge instructions completed and paperwork given to the patient. Wristband removed and belongings list signed. Patient is stable with no sign of distress noted.
== END 2020-01-14 19:00 | disposition home or self-care (01) | DRG 560 ==
PROVIDERS: ADMIT Physical Medicine & Rehabilitation Pain Medicine; ATTEND Physical Medicine & Rehabilitation Pain Medicine
DX: Z47.1 Aftercare following joint replacement surgery (principal); D68.59 Other primary thrombophilia; Z68.41 Body mass index [BMI] 40.0-44.9, adult; Z96.643 Presence of artificial hip joint, bilateral; Z96.653 Presence of artificial knee joint, bilateral; J44.9 Chronic obstructive pulmonary disease, unspecified; E66.9 Obesity, unspecified; I10 Essential (primary) hypertension; M19.90 Unspecified osteoarthritis, unspecified site; E53.8 Deficiency of other specified B group vitamins; E55.9 Vitamin D deficiency, unspecified; E78.5 Hyperlipidemia, unspecified; F17.210 Nicotine dependence, cigarettes, uncomplicated; M81.0 Age-related osteoporosis without current pathological fracture; G89.29 Other chronic pain; K21.9 Gastro-esophageal reflux disease without esophagitis; R21 Rash and other nonspecific skin eruption
CPT/HCPCS: 36415; 73562; 82652; 83735; 84100; 84443; 85025; A9150; J1644; J2310; J3420; J3535; J3590; Q0163